=== PATIENT | female | born 1965 | race Caucasian/White ===

== ENCOUNTER → 2017-11-11 | Outpatient (CLI) | payer MEDICARE ==
[~2017-11-11] MED LIST: ALBUTEROL INHAL17 GM IH; AMBIEN 10 MG TA10 MG PO; AMLODIPINE BESYL5 MG PO; ANUSOL1 EACH RC; AVELOX 400 MG400 MG; AZITHROMYCIN 2250 MG PO; B COMPLEX-VITA1 EACH PO; BACTRIM DS TAB1 EACH PO; BENTYL20 MG PO; BIAXIN 500 MG500 M2 PO; CITRATE OF MAG296 ML PO; CLONAZEPAM PO; COMPAZINE25 MG RECTAL; DESYREL100 MG; ELEMENTAL CALC600 MG PO; FIORICET 50-321 EACH PO; FLEXERIL PO; FLOMAX PO; IBUPROFEN 600600 M1 PO; IMITREX100 MG PO; KLOR-CON 1010 MEQ; KLOR-CON 1010 MEQ PO; LISINOPRIL10 MG; MACRODANTIN25 MG; MACRODANTIN50 MG PO; MAG-OX 400 TAB400 M1 PO; MAGNES; MAGNESIUM GLUC500 M1 PO; MAXALT MLT10 MG; MECLIZINE 25 MG25 M1 PO; MEDROLDOSEPACK PO; MELATONIN3 MG PO; MG; MIRAPEX0.5 MG; MIRAPEX0.5 MG PO; MIRAPEX1 MG; MULTIVITAMINS1 EAC7; NAPROSYN500 MG PO; NAPROXEN DELAY500 M1; NEURONTIN 300300 M1; NEURONTIN 300300 M1 PO; NORCO 5-325 TA1 EACH PO; PERCOCET 5-3251 EACH PO; PHENERGAN 25 MG25 M1; PHENERGAN 25 MG25 M1 PO; PHENERGAN 25 MG25 MG PO; POTASSIUM PO; POTASSIUM20 PO; PREDNISONE 10 M10 M1; PREDNISONE 20 M20 MG PO; PREDNISONE50 MG PO; PRISTIQ50 MG PO; PROVENTIL HFA6.7 G1 INH; ROBITUSSIN10 MG; SYMBICORT80 MCG/4.1; TIZANIDINE HCL 22 M1 PO; TIZANIDINE HCL4 MG PO; TOPAMAX 25 MG T25 M1 PO; TOPAMAX50 MG PO; TOPIRAGEN50 MG PO; ULTRAM 50MG TAB50 MG PO; VESICARE10 M1 PO; VIBRAMYCIN 100100 MG PO; VICODIN 5-5001 EACH PO; VITAMIN B-2100 MG PO; VITAMIN D1000 UNI1 PO; VITAMINC500 PO; VITCB500GO; WELLBUTRIN XL300 M1; WELLBUTRIN XL300 M1 PO; ZOFRAN 4 MG ORAL4 MG PO; [UNRECOGNIZED DRUG - OTHER]
[2017-11-11 13:36] LABS: HEMOGLOBIN 13.6 gm/dL (12.0-15.0); MCH 27.2 pg (26.0-34.0); MCHC 32.4 g/dL (28.0-37.0); MCV 84.1 fL (80.0-100.0); MPV 7.4 fl. (7.2-11.1); RDW-CV 16.2 % (10.5-14.5); WBC 9.1 thou/uL (4.0-11.0)
[2017-11-11 14:03] LABS: CREATININE 0.9 mg/dL (0.6-1.3); POTASSIUM 3.8 mmol/L (3.5-5.1)
== END ==
LOC: M.LAB 13:17
PROVIDERS: Specialist
DX: Z01.812 Encounter for preprocedural laboratory examination (principal); K62.5 Hemorrhage of anus and rectum; K64.2 Third degree hemorrhoids; K64.8 Other hemorrhoids; K64.4 Residual hemorrhoidal skin tags

== ENCOUNTER → 2018-05-05 | Outpatient (CLI) | payer MEDICARE | LOC: M.RAD 16:34 | DX: R06.02 Shortness of breath (principal); R05 Cough; R60.0 Localized edema ==

== ENCOUNTER → 2018-05-11 | Outpatient (CLI) | payer MEDICARE ==
--- NOTE | 2018-05-14 09:09 | PF ---
[place] [address] PULMONARY FUNCTION REPORT Name: GERADRORENUKA Christopher [facility] [id number] Admission: 05/11/18 Attend Phys: Adriana Artis RN Discharge: Date of : 65 Report #: [id number] THIS REPORT FOR: //name// CC: Glenroy Artis REFERRING PHYSICIAN: Glenroy Brooks DO/MARIA D Bunch. PULMONARY FUNCTION TEST SPIROMETRY: The FEV1/FVC ratio was 78% predicted. The FEV1 post-bronchodilator was 2.25 liters at 74% predicted with significant bronchodilator response. The forced vital capacity was 2.74 liters, 71% predicted. The PGR32-74 ratio was 82% of predicted postbronchodilator with significant change post-bronchodilators. LUNG VOLUMES: The total lung capacity was 59% predicted at 3.23 liters. The diffusion capacity was 52%. 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 <ELECTRONICALLY SIGNED> By: Rima Dueñas MD 05/14/18 [id number] Home Dueñas MD /gale
== END ==
LOC: M.PUL 10:35
DX: R06.02 Shortness of breath (principal); R05 Cough

== ENCOUNTER 2018-06-07 02:07 | Emergency (ER) | payer MEDICARE ==
[~2018-06-07] VITALS: Ht 170.2 cm; Wt 99.8 kg
[2018-06-07 02:31] LABS: URINE BILIRUBIN NEGATIVE (Negative); URINE BLOOD 3+ (Negative); URINE CLARITY SL CLOUDY; URINE COLOR YELLOW; URINE GLUCOSE-RANDOM NEGATIVE (Negative); URINE KETONES NEGATIVE (Negative); URINE NITRITE-REFLEX NEGATIVE (Negative); URINE PROTEIN NEGATIVE (Negative); URINE SPECIFIC GRAVITY 1.015 (1.005-1.030); URINE UROBILINOGEN 0.2 E.U./dl (0.2-1.0)
[2018-06-07] MEDS ORDERED: FEOSOL45 M1 PO (02:31)
[2018-06-07] MEDS ORDERED: TRAZODONE HCL50 MG PO (02:31)
[2018-06-07] MEDS ORDERED: LASIX 40 MG TAB40 M2 PO (02:33)
[2018-06-07] MEDS ORDERED: COZAAR 25 MG TA25 M1 PO (02:34)
[2018-06-07] MEDS ORDERED: SYMBICORT160 MCG/4. INH (02:34)
[2018-06-07] MEDS ORDERED: WELLBUTRIN XL150 MG PO (02:35)
[2018-06-07] MEDS ORDERED: TOPAMAX50 MG PO (02:35)
[2018-06-07] MEDS ORDERED: MIRAPEX0.5 MG PO (02:36)
[2018-06-07] MEDS ORDERED: OMEPRAZOLE 20 M20 M1 PO (02:36)
[2018-06-07] MEDS ORDERED: CLONIDINE HCL0.3 M3 PO (02:37)
[2018-06-07] MEDS ORDERED: NEURONTIN 300300 M1 PO (02:38)
[2018-06-07] MEDS ORDERED: VITAMIN D5000 UNIT PO (02:38)
[2018-06-07 02:43] LABS: URINE LEUKOCYTES-REFLEX 3+ (Negative)
[2018-06-07] MEDS ORDERED: ZOFRAN ODT4 MG PO (03:21)
[2018-06-07] MEDS ORDERED: NORCO 5-325 TA1 EACH PO (03:21)
[2018-06-07] MEDS ORDERED: CIPROFLOXACIN500 M1 PO (03:21)
[2018-06-07 03:29] LABS: CASTS None Seen /LPF (None Seen); SQUAMOUS 0-3 Few /LPF (0-3)
[2018-06-07 03:31] LABS: CRYSTALS None Seen /LPF (None Seen); URINE RBC None Seen /HPF (0-2); URINE WBC-REFLEX >25 Many /HPF (0-5)
[2018-06-07 04:05] VITALS: BP 114/76
== END 2018-06-07 04:05 | disposition home or self-care (01) ==
LOC: M.ERS 02:07
PROVIDERS: Emergency Medicine
DX: N39.0 Urinary tract infection, site not specified (principal); G43.909 Migraine, unspecified, not intractable, without status migrainosus; Z95.0 Presence of cardiac pacemaker; Z88.0 Allergy status to penicillin; Z91.041 Radiographic dye allergy status; Z88.8 Allergy status to other drugs, medicaments and biological substances

== ENCOUNTER → 2018-12-29 | Outpatient (CLI) | payer MEDICARE ==
[~2018-12-29] MED LIST changes: +CIPROFLOXACIN500 M1 PO; +CLONIDINE HCL0.3 M3 PO; +COZAAR 25 MG TA25 M1 PO; +FEOSOL45 M1 PO; +LASIX 40 MG TAB40 M2 PO; +OMEPRAZOLE 20 M20 M1 PO; +SYMBICORT160 MCG/4. INH; +TRAZODONE HCL50 MG PO; +VITAMIN D5000 UNIT PO; +WELLBUTRIN XL150 MG PO; +ZOFRAN ODT4 MG PO
--- NOTE | 2018-12-29 14:12 | 2DMMODE ---
[place] [address] 2 D/M-MODE ECHOCARDIOGRAM Name: RENUKA GERARDO [facility] [id number] Admission: 12/29/18 Attend Phys: Nia Saravia Discharge: Date of : 65 Date of Service: 12/29/18 1412 Report #: [id number] THIS REPORT FOR: //name// APPROVED REPORT Study performed: 12/29/2018 12:53:02 EXAM: Comprehensive 2D, Doppler, and color-flow Echocardiogram Patient Location: Out-Patient BSA: 2.16 HR: 67 bpm BP: 112/68 mmHg Other Information Study Quality: Good Indications Dyspnea 2D Dimensions IVSd: 10.65 (7-11mm) LVOT Diam: 20.41 (18-24mm) LVDd: 46.10 mm PWd: 10.05 (7-11mm) Ascending Ao: 29.70 (22-36mm) LVDs: 23.46 (25-40mm) Aortic Root: 20.32 mm Volumes Left Atrial Volume (Systole) LA ESV Index: 16.20 mL/m2 Aortic Valve AoV Peak Arnel.: 1.45 m/s AO Peak Gr.: 8.46 mmHg LVOT Max P.45 mmHg AO Mean Gr.: 4.99 mmHg LVOT Mean P.44 mmHg LVOT Max V: 1.17 m/s AO V2 VTI: 34.06 cm LVOT Mean V: 0.70 m/s BELL (VTI): 2.72 cm2 LVOT V1 VTI: 28.26 cm Mitral Valve E/A Ratio: 1.29 MV Decel. Time: 190.62 ms MV E Max Arnel.: 0.94 m/s MV PHT: 55.28 ms MVA (PHT): 3.98 [place]2 [place] [address] 2 D/M-MODE ECHOCARDIOGRAM Name: RENUKA GERARDO Room: [facility]#: [id number] Admission: 12/29/18 Attend Phys: Nia Saravia Discharge: Date of : 65 Date of Service: 12/29/18 1412 Report #: [id number] TDI E/Lateral E': 9.40 E/Medial E': 10.44 Medial E' Arnel.: 0.09 m/s Lateral E' Arnel.: 0.10 m/s Pulmonary Valve PV Peak Arnel.: 1.04 m/s PV Peak Gr.: 4.32 mmHg Tricuspid Valve RAP Estimate: 5.00 mmHg TR Peak Gr.: 21.34 mmHg RVSP: 26.34 mmHg PA Pressure: 26.34 mmHg Left Ventricle The left ventricle is normal size. There is normal LV segmental wall motion. There is normal left ventricular wall thickness. Left ventricular systolic function is normal. The left ventricular ejection fraction is within the normal range. LVEF is 60-65%. The left ventricular diastolic function is normal. Right Ventricle The right ventricle is normal size. The right ventricular systolic function is normal. Pacemaker lead is present in the right ventricle. Atria The left atrium size is normal. Pacemaker lead is present in the right atrium. Aortic Valve The aortic valve is normal in structure. No aortic regurgitation is present. There is no aortic valvular stenosis. Mitral Valve The mitral valve is normal in structure. Mild mitral regurgitation. No evidence of mitral valve stenosis. Tricuspid Valve The tricuspid valve is normal in structure. Mild tricuspid regurgitation. estimated pa pressure 30 mm Hg Pulmonic Valve The pulmonary valve is normal in structure. There is no pulmonic valvular regurgitation[place] [address] 2 D/M-MODE ECHOCARDIOGRAM Name: RENUKA GERARDOZABETH Room: [facility]#: [id number] Admission: 12/29/18 Attend Phys: Nia Saravia Discharge: Date of : 65 Date of Service: 12/29/18 1412 Report #: [id number] The aortic root is normal in size. IVC is normal in size and collapses >50% with inspiration. Pericardium There is no pericardial effusion. <Conclusion> LVEF is 60-65%. Mild mitral regurgitation. <ELECTRONICALLY SIGNED> By: Tim Calvillo MD, [facility] 12/29/18 [phone] 11 Tim Calvillo MD, FAC /INF
== END ==
LOC: M.CRD 12-27 17:09
DX: I08.1 Rheumatic disorders of both mitral and tricuspid valves (principal); R60.0 Localized edema

== ENCOUNTER → 2019-01-12 | Outpatient (CLI) | payer MEDICARE, MEDICAID ==
[2019-01-12 13:29] LABS: ALBUMIN 3.3 g/dL (3.4-5.0); CREATININE 0.9 mg/dL (0.6-1.3); POTASSIUM 3.8 mmol/L (3.5-5.1); TOTAL BILIRUBIN 0.3 mg/dL (<0.1-1.0); TOTAL PROTEIN 6.9 g/dL (6.4-8.2)
== END ==
LOC: M.LAB 12:39
PROVIDERS: Registered Nurse
DX: R60.0 Localized edema (principal)

== ENCOUNTER → 2019-01-25 | Outpatient (CLI) | payer MEDICARE, MEDICAID ==
[2019-01-25 15:12] LABS: CALCIUM 9.2 mg/dL (8.5-10.1); CREATININE 1.3 mg/dL (0.6-1.3); POTASSIUM 3.5 mmol/L (3.5-5.1)
== END ==
LOC: M.LAB 14:30
PROVIDERS: Nurse Practitioner
DX: I10 Essential (primary) hypertension (principal)

== ENCOUNTER → 2019-06-01 | Outpatient (CLI) | payer OTHER, MEDICAID | LOC: M.RAD 14:20 | DX: R04.0 Epistaxis (principal); Z88.0 Allergy status to penicillin ==

== ENCOUNTER → 2019-08-30 | Outpatient (CLI) | payer OTHER, MEDICAID | LOC: M.RAD 16:50 | DX: R91.8 Other nonspecific abnormal finding of lung field (principal) ==

== ENCOUNTER 2021-05-25 06:18 | Emergency (ER) | payer OTHER, MEDICAID ==
[~2021-05-25] VITALS: Ht 170.2 cm; Wt 106.6 kg
[~2021-05-25 06:18] MED LIST changes: +CEFDINIR300 MG PO; +DESYREL150 MG PO; +FLOMAX0.4 MG PO; +IMITREX4 MG/0.5 M SUBQ; +NAPROSYN500 M1 PO; +NEURONTIN300 MG PO; +NORCO 10-325 T1 EACH PO; +RAYOS5 MG PO; +TOPAMAX100 MG PO; +UROCIT-K10 ME1 PO; +ZPAK PO
[2021-05-25 07:06] LABS: URINE BILIRUBIN NEGATIVE (Negative); URINE BLOOD NEGATIVE (Negative); URINE CLARITY CLEAR; URINE COLOR YELLOW; URINE GLUCOSE-RANDOM NEGATIVE (Negative); URINE KETONES NEGATIVE (Negative); URINE LEUKOCYTES-REFLEX NEGATIVE (Negative); URINE NITRITE-REFLEX NEGATIVE (Negative); URINE PROTEIN NEGATIVE (Negative); URINE UROBILINOGEN 0.2 E.U./dl (0.2-1.0)
[2021-05-25 07:26] LABS: ABSOLUTE EOSINOPHILS 0.1 thou/uL (0.0-0.7); ABSOLUTE MONOCYTES 0.5 thou/uL (0.0-1.2); ABSOLUTE NEUTROPHILS 3.2 thou/uL (1.6-8.1); BASOPHILS 0.7 %; HEMATOCRIT 48.1 % (37.0-47.0); HEMOGLOBIN 15.7 gm/dL (12.0-15.0); LYMPHOCYTES 21.1 %; MCH 27.1 pg (26.0-34.0); MCHC 32.7 g/dL (28.0-37.0); MCV 82.8 fL (80.0-100.0); MONOCYTES 9.9 %; MPV 8.7 fl. (7.2-11.1); NUCLEATED RBCS 0 /100WBC; PLATELET COUNT* 187 thou/uL (150-400); POLYS 66.3 %; RBC 5.81 mil/uL (4.20-5.00); RDW-CV 13.8 % (10.5-14.5); WBC 4.9 thou/uL (4.0-11.0)
[2021-05-25] MEDS ORDERED: FEOSOL45 M1 PO (07:59)
[2021-05-25] MEDS ORDERED: CYCLOBENZAPRINE5 MG PO (08:00)
[2021-05-25] MEDS ORDERED: CLONAZEPAM 0.50.5 M1 PO (08:00)
[2021-05-25] MEDS ORDERED: METOCLOPRAMIDE10 MG PO (08:00)
[2021-05-25] MEDS ORDERED: METFORMIN HCL500 M3 PO (08:01)
[2021-05-25] MEDS ORDERED: OZEMPIC0.25 MG/0. SUBQ (08:01)
[2021-05-25] MEDS ORDERED: VENTOLIN HFA 1818 GM INH (08:01)
[2021-05-25] MEDS ORDERED: TRIAMTERENE/HCT1 CA1 PO (08:02)
[2021-05-25] MEDS ORDERED: MAXZIDE-25 MG1 EACH PO (08:02)
[2021-05-25 08:59] LABS: CALCIUM 8.7 mg/dL (8.5-10.1); CREATININE 1.1 mg/dL (0.6-1.3)
[2021-05-25 09:04] LABS: ALBUMIN 3.7 g/dL (3.4-5.0); TOTAL PROTEIN 7.7 g/dL (6.4-8.2)
[2021-05-25 09:16] VITALS: BP 87/52
== END 2021-05-25 09:17 | disposition home or self-care (01) ==
LOC: M.ERS 06:18
PROVIDERS: Personal Emergency Response Attendant
DX: R10.84 Generalized abdominal pain (principal); M54.9 Dorsalgia, unspecified; R11.2 Nausea with vomiting, unspecified; I10 Essential (primary) hypertension; G43.909 Migraine, unspecified, not intractable, without status migrainosus; Z95.0 Presence of cardiac pacemaker; Z79.899 Other long term (current) drug therapy; Z91.041 Radiographic dye allergy status; Z88.0 Allergy status to penicillin; Z88.8 Allergy status to other drugs, medicaments and biological substances

== ENCOUNTER → 2021-05-29 | Outpatient (CLI) | payer OTHER, MEDICAID ==
[~2021-05-29] MED LIST changes: +CLONAZEPAM 0.50.5 M1 PO; +CYCLOBENZAPRINE5 MG PO; +MAXZIDE-25 MG1 EACH PO; +METFORMIN HCL500 M3 PO; +METOCLOPRAMIDE10 MG PO; +OZEMPIC0.25 MG/0. SUBQ; +TRIAMTERENE/HCT1 CA1 PO; +VENTOLIN HFA 1818 GM INH
== END ==
LOC: M.NUC 06:41
PROVIDERS: ATTEND Nurse Practitioner Family
DX: R11.2 Nausea with vomiting, unspecified (principal); R68.81 Early satiety